=== PATIENT | male | born 1935 | race Caucasian/White ===

== ENCOUNTER 2020-04-06 00:45 | Inpatient (IN) | payer OTHER, MEDICARE, SELFPAY ==
[2020-04-06] VITALS (9 sets, daily range): BP systolic 113–169; BP diastolic 55–71; PULSE 63–85; RESP 17–22; TEMP 36.6–37.2; O2SAT 91–95; BMI 24.7
--- NOTE | 2020-04-06 01:07 | PC.NURSE ---
jacket, clothes, phone librarian
--- NOTE | 2020-04-06 01:22 | P.HP_ITS ---
Providers/Chief Complaint Admitting Physician: Juan C Small MD Chief Complaint: covid+/hyponutremia History of Present Illness Howard Pete is a 84 year old male with PMH of HTN came in with c/o loss of taste, smell,b/l l/e disabiling cramps,fatigue and abdominal discomfort,nausea,loss of appetite all his symptoms started 10 days back and has progressively got worsened.Today he was at [facility] and there he was tested for COVID as a part of work up , unfortunately his RAPID COVID test came back positive.His serum Sodium was also noted to be 116.He was transferred for management of severe hyponatremia.He has denied fever,cough,chest pain,SOB,headache,or any other urinary complain.He is saturating well on R.A. labs from the transfer facility have been Reviewed.He started on N.s @ 125cc hr and was also given medications for nausea and then transferred to our facility. Vitals on arrival is stable.He is afebrile and saturating above 90% on R.A Review of Systems 2 Const: Denies: fever(s) or chills Card: Denies: palpitations, edema or swelling of feet/ankles Resp: Denies: dyspnea, productive cough, wheezing or pain on inspiration GI: Denies: diarrhea or constipation : Denies: flank pain or difficulty urinating Musc: Denies: back pain, extremity pain or extremity swelling Neuro: Denies: headache(s), difficulty walking or confusion Medications/Allergies Home Medications Medication Instructions Recorded Confirmed Last Taken Type amlodipine 10 mg PO DAILY 04/06/20 04/06/20 04/05/20 08:00 History triamterene-hydrochlorothiazid 1 tab PO DAILY 04/06/20 04/06/20 04/05/20 08:00 History Allergies Allergy/AdvReac Type Severity Reaction Status Date / Time No Known Allergies Allergy Verified 04/06/20 01:54 PFSH Acute PFSH: Medical History (Updated 04/06/20 @ 04:27 by Juan C Small MD) Hyponatremia Vitals/I&O/Wt Last Vital Signs Temp 98.7 F 04/06/20 01:13 Pulse 82 04/06/20 01:13 Resp 17 04/06/20 01:13 BP 169/62 04/06/20 01:13 Pulse Ox 93 04/06/20 01:13 Weight last 48 hrs Weight 73.663 kg Physical Exam Const: COMMON NORMALS: patient oriented x3 HENMT: COMMON NORMALS: normocephalic and atraumatic HEAD & SCALP: normocephalic and atraumatic Eye: COMMON NORMALS: no scleral icterus GENERAL EYE: appearance normal, both eyes and all related structures Chest: COMMONS NORMALS: normal inspection of the chest and normal palpation of entire chest wall CHEST: Yes Symmetrical chest wall rise Resp: COMMON NORMALS: normal respiratory effort, No retractions, No use of accessory muscles and clear to auscultation bilaterally EFFORT & INSPECTION: Yes symmetric chest movement AUSCULTATION: clear to auscultation bilaterally Cardio: COMMON NORMALS: regular rate, regular rhythm, S1 normal heart sound present, S2 normal heart sound present, No gallops present (Cardio), No murmurs present (Cardio), No rub (Cardio) and Peripheral pulses 2+ throughout RATE: regular rate RHYTHM: regular rhythm HEART SOUNDS: S1 normal heart sound present and S2 normal heart sound present PERIPHERAL PULSES: Peripheral pulses 2+ throughout GI: COMMON NORMALS: Normal to inspection, nondistended, normoactive bowel sounds present, Soft to palpation, non-tender, No hepatosplenomegaly present and no masses AUSCULTATION: Yes normoactive bowel sounds PALPATION: Yes Soft to palpation and Yes No hepatosplenomegaly present RECTAL EXAM: Yes deferred Extremity: COMMON NORMALS: no clubbing, cyanosis or edema and no pedal edema Neuro: COMMON NORMALS: patient oriented x3 A&P Assessment and plan (1) Hyponatremia: Symptomatic Hyponatremia likely 2/2 to poor oral intake 2/2 to COVID infection TSH Random Cortisol Osmolality serum and urine. Continue N.S @ 125cc/hr Oral salt tablets 1gm q12 h daily Monitor BMP Status: Inactive (2) COVID-19: Currently saturating well ON R.A has no respiratory symptoms Will avoid COVID cocktail Will continue to monitor for now Status: Acute (3) HTN (hypertension): Continue Amlodipine 10 mg oral daily for now Status: Acute Additional A&P Information DVT PPX: On lovenox 40 mg sc daily Code Status :Full code Disposition :Home Attestations Medical Necessity Statement*: Patient needs to be in hospital for the management of severe symptomatic hyponatremia.Anticipated length of stay greater then 2 midnights Coding Level of Care Code Acute Manager French for Chg Fwd Diagnoses Hyponatremia E87.1 COVID-19 U07.1 HTN (hypertension) I10
--- NOTE | 2020-04-06 01:26 | PC.NURSE ---
Pt arrived to floor from [facility] in [facility]. Pt ambulated from gurney to bed with no issues. Pt O2 saturation was 93% on RA, in report they stated he was on 2L NC from hospital. Pt is A&O. Voices leg cramps.
[2020-04-06] MEDS: enoxaparin 40 mg/0.4 mL Syringe SUBCUT (01:43)
[2020-04-06] MEDS: sodium chloride 0.9% 1,000 ML 125 ML IV (01:43)
[2020-04-06] MEDS: cyclobenzaprine 10 mg Tablet 5 MG PO ×2 (01:43→10:22)
[2020-04-06] MEDS: oxyCODONE-APAP 5-325 mg Tablet 1 TAB PO (05:03)
[2020-04-06 05:40] LABS: Basophils % 0.1 %; Hematocrit 31.2 % (42.0-52.0); Hemoglobin 11.5 g/dL (11.7-16.6); Lymphocytes % 11.8 %; Mean Corpuscular HGB Conc 36.9 g/dL (30.0-36.0); Mean Corpuscular Hemoglobin 30.8 pg (28.0-34.0); Mean Corpuscular Volume 83.6 fL (80-94); Mean Platelet Volume 11.2 fL (7.4-10.4); Monocytes # 0.7 10^3/uL (0.2-0.9); Monocytes % 7.9 %; Neutrophils # 6.79 10^3/uL (1.8-7.7); Neutrophils % 79.7 %; Nucleated Red Blood Cells % 0 %; Platelet Count 186 10^3/cmm (130-400); Red Blood Count 3.73 10^6/uL (4.1-5.3); Red Cell Distribution Width 12.1 % (12.1-15.1); White Blood Count 8.5 10^3/uL (4.0-10.0)
[2020-04-06 06:33] LABS: D Dimer 0.53 ug/mIFEU (0-0.59)
[2020-04-06 06:42] LABS: Ferritin 640 ng/mL (30-400)
[2020-04-06 06:47] LABS: NT Pro B Type Natriuretic Pept 836 pg/mL (0-450)
[2020-04-06 06:49] LABS: Cortisol Random 20.86 ug/mL (2.47-19.5)
[2020-04-06 07:50] LABS: Erythrocyte Sedimentation Rate 22 mm/hr (0-10)
[2020-04-06] MEDS: amlodipine 10 mg Tablet PO (08:42)
[2020-04-06] MEDS: hydroCHLOROthiazide 25 mg Tablet 50 MG PO (08:42)
[2020-04-06] MEDS: pantoprazole 40 mg SDV IVP (08:42)
[2020-04-06] MEDS: gabapentin 100 mg Capsule PO ×3 (08:42→20:47)
--- NOTE | 2020-04-06 09:41 | P.PN_ITS ---
Subjective Subjective: Interval history: He feels slightly better. Cramps have let up somewhat, some residual discomfort in his legs afterward. He has been feeling little bit queasy. Appetite is not the best. No abdominal pain. No vomiting. No diarrhea. No headache. Some muscle aches. Vitals/I&O/Wt Last Vital Signs Temp 98.7 F 04/06/20 08:00 Pulse 85 04/06/20 09:39 Resp 18 04/06/20 08:00 BP 137/57 04/06/20 08:00 Pulse Ox 93 04/06/20 09:39 04/05/20 04/06/20 04/06/20 22:59 06:59 14:59 Intake Total 240 / 240 Output Total 0 / 0 Balance 0 / 0 240 / 240 Weight last 48 hrs Weight 73.709 kg Weight 73.663 kg Physical Exam Const: COMMON NORMALS: no acute distress and patient oriented x3 OTHER: Pleasant elderly gentleman, awake, alert, not in distress. HENMT: COMMON NORMALS: oropharynx normal Eye: COMMON NORMALS: Equal, round and reactive pupils present PUPIL: Yes Equal, round and reactive pupils present OTHER: Some injection of conjunctiva which he says is chronic. Some mild chemosis. Neck/C-Spine: COMMON NORMALS: no JVD Resp: COMMON NORMALS: normal respiratory effort AUSCULTATION: diminished lung sounds Cardio: COMMON NORMALS: no JVD, regular rhythm, S1 normal heart sound present, S2 normal heart sound present and No murmurs present (Cardio) RHYTHM: regular rhythm HEART SOUNDS: S1 normal heart sound present and S2 normal heart sound present GI: COMMON NORMALS: Normal to inspection, nondistended, normoactive bowel sounds present, Soft to palpation and non-tender PALPATION: Yes Soft to palpation Extremity: COMMON NORMALS: no joint enlargement and no pedal edema Neuro: COMMON NORMALS: patient oriented x3 and moves all extremities Skin: COMMON NORMALS: no rashes or lesions noted GENERAL SKIN EXAM: no rashes or lesions noted Data : 04/06/20 05:00 04/06/20 09:16 A&P Assessment and plan (1) Hyponatremia: Hold IV infusion, sodium tablets, check sodium level. Resume therapy depending on the level. Symptomatic Hyponatremia likely 2/2 to poor oral intake 2/2 to COVID infection. Appetite is poor. He agrees to take some Ensure with meals. We will add. TSH, will request Random Cortisol appropriate. Osmolality serum and urine, urine sodium pending. Follow. Status: Inactive (2) COVID-19: Moderate symptomatic infection, without hypoxia, although she was started on oxygen, not sure whether symptomatic. Will check with RT - per RT Sat came down to 85% which would make his COVID-19 pneumonia severe. Does not appear in fluid overload. Will start on Remdesivir, decadron. Monitor O2. So far doing well on 3L. Lovenox PPx Status: Acute (3) HTN (hypertension): Continue Amlodipine 10 mg oral daily for now Status: Acute Additional A&P Information Leg cramps: He reports these have improved. Likely due to electrolyte imbalances, dehydration. Pending magnesium level, calcium, follow potassium level. Check CK. DVT PPX: On lovenox 40 mg sc daily Code Status :Full code Disposition :Home Attestations Medical Necessity Statement*: Continue admission for assessment management of symptomatic hyponatremia, severe COVID-19 pneumonia Coding Level of Care Code Acute Metallurgical Laboratory Assistant for [facility] Fwd Exam Comprehensive Diagnoses Hyponatremia E87.1 COVID-19 U07.1 HTN (hypertension) I10
[2020-04-06] MEDS: dexamethasone 4 mg Tablet 6 MG PO (10:22)
[2020-04-06 11:38] LABS: Alanine Aminotransferase 19 U/L (0-41); Alkaline Phosphatase 79 IU/L (40-130); Anion Gap 12.3 (5-19); Aspartate Amino Transferase 45 U/L (0-40); Blood Urea Nitrogen 12 mg/dL (8-23); Carbon Dioxide 22 mmol/L (22-29); Chloride 81 mmol/L (98-107); Globulin 2.5 g/dL (1.3-4.6); Glucose 112 mg/dL (65-115); Magnesium 1.5 mg/dL (1.7-2.3); Osmolality Calculated 235 mOsm/kg (285-295); Potassium 3.3 mmol/L (3.5-5.1); Thyroid Stimulating Hormone 1.28 uIU/mL (0.27-4.20); Total Bilirubin 0.5 mg/dL (0.15-1.2); Total Protein 5.5 g/dL (6.6-8.7)
[2020-04-06 11:44] LABS: Creatine Phosphokinase 1241 U/L (39-308); Sodium 112 mmol/L (136-145)
[2020-04-06] MEDS: magnesium sulfate premix 2 GM/50 ML PIGGYBACK IV (13:45)
[2020-04-06] MEDS: potassium chloride ER 20 mEq Tablet PO (13:45)
[2020-04-06 16:32] LABS: Creatine Phosphokinase 1292 U/L (39-308)
[2020-04-06 17:00] LABS: Sodium 114 mmol/L (136-145)
--- NOTE | 2020-04-06 19:44 | XR_ITS ---
WS: [id number] XR chest 1V portable [id number] REASON FOR EXAM: SIADH, pulmonary lesion? FINDINGS: No examination for comparison. The heart and mediastinum are within normal limits for age. No active pulmonary parenchymal or pleural abnormality. There is elevation of the right hemidiaphragm with colon interposition. XR/XR chest 1V portable [id number] IMPRESSION: No acute chest abnormality. No lung mass identified.
--- NOTE | 2020-04-06 19:54 | P.CONIM_ITS ---
Providers/Reason For Consult Consulting Physican/Specialty*: Nephrology Reason for Consult*: hyponatremia Attending Physician: Zoran Crouch History of Present Illness History of Present Illness Thank you for consultation. Today I had the pleasure of reviewing this very pleasant 84-year-old gentleman for evaluation of hyponatremia. He presented to our facility with leg cramps for 4-5 days, loss of smell and taste for 1-2 weeks. He was subsequently found to be Covid positive. He specifically denies any fevers or chills, cough, upper respiratory tract infection. For the last few days/week or more he has had poor oral intake of food, however has been attempting to hydrate, drinking roughly 30 ounces of fluid a day. At home he takes Maxide. On arrival he was found to have a serum sodium of 112 at 11 AM, repeat levels of 4 PM and had improved to 114. This was after isotonic IV hydration has been administered. He remains on hydrochlorothiazide. No known history of hyponatremia. He does not drink fluids excessively. Apart from the hydrochlorothiazide that he has been taking, there are no other medication exposures including opioids, antidepressants etc. No recent exposure to steroids. No history of heart disease, lung disease, thyroid disease, liver disease. No extremity edema, shortness of breath or other high-volume associated symptoms. No diarrhea, vomiting or other electrolyte rich fluid loss. He is not a chronic smoker or drinker. TSH is 1.28, random cortisol 20. Potassium was low 3.3 and has been replaced with 60 Shima use. Urine osmolality is pending. Meds/Allergies Home Medications and Allergies Home Medications Medication Instructions Recorded Confirmed Last Taken Type amlodipine 10 mg PO DAILY 04/06/20 04/06/20 04/05/20 08:00 History triamterene-hydrochlorothiazid 1 tab PO DAILY 04/06/20 04/06/20 04/05/20 08:00 History Allergies Allergy/AdvReac Type Severity Reaction Status Date / Time No Known Allergies Allergy Verified 04/06/20 01:54 Current Medications Current Medications Generic Name Dose Route Start Last Admin Trade Name Freq PRN Reason Stop Dose Admin Amlodipine Besylate 10 mg 04/06/20 09:00 04/06/20 08:42 Amlodipine 10 Mg Tablet PO 10 mg DAILY ABENA Administration Cyclobenzaprine HCl 5 mg 04/06/20 01:17 04/06/20 10:22 Cyclobenzaprine 10 Mg Tablet PO 5 mg TID PRN Administration MUSCLE SPASMS Dexamethasone 6 mg 04/06/20 09:55 04/06/20 10:22 Dexamethasone 4 Mg Tablet PO 6 mg DAILY ABENA Administration Enoxaparin Sodium 40 mg 04/06/20 01:15 04/06/20 01:43 Enoxaparin 40 Mg/0.4 Ml Syringe SUBCUT 40 mg Q24H ABENA Administration Gabapentin 100 mg 04/06/20 09:00 04/06/20 14:35 Gabapentin 100 Mg Capsule PO 100 mg TID ABENA Administration Sodium Chloride 1,000 mls @ 125 mls/hr 04/06/20 01:15 04/06/20 01:43 Sodium Chloride 0.9% IV 125 mls/hr .Q8H ABENA Administration Oxycodone/Acetaminophen 1 tab 04/06/20 01:13 04/06/20 05:03 Oxycodone-Apap 5-325 Mg Tablet PO 1 tab Q4H PRN Administration SEVERE PAIN Pantoprazole Sodium 40 mg 04/06/20 09:00 04/06/20 08:42 Pantoprazole 40 Mg Sdv IVP 40 mg DAILY ABENA Administration PFSH Acute PFSH: Medical History (Updated 04/06/20 @ 04:27 by Juan C Small MD) Hyponatremia Vitals/I&O/Wt Last Vital Signs Temp 98.7 F 04/06/20 19:52 Pulse 71 04/06/20 19:52 Resp 18 04/06/20 19:52 BP 124/61 04/06/20 19:52 Pulse Ox 92 04/06/20 19:52 04/06/20 04/06/20 04/06/20 06:59 14:59 22:59 Intake Total 490 / 490 300 / 790 Output Total 0 / 0 240 / 240 500 / 740 Balance 0 / 0 250 / 250 -200 / 50 Weight last 48 hrs Weight 73.709 kg Weight 73.663 kg Physical Exam Narrative: EXAM NARRATIVE: Constitutional: Awake, conversant HEENT: Wet mucosa, no jvp, non icteric Lungs: Bilaterally clear without discernible wheeze or rales in all lung zones CVS: S1 S2, no murmurs Abdo: Soft, BS ok Ext 4: Minimal edema, peripheral perfusion with no cyanosis Neurological: Grossly non-focal A&P Additional A&P Information 1. Euvolemic hyponatremia. Almost certainly multifactorial, with predisposition secondary to his outpatient exposure to thiazide. Now likely precipitated by low solute relative to high water intake. His sodium levels were improving on isotonic saline, I will continue isotonic lactated Ringer's at 75 cc/h. Work-up largely complete, will get a stat urinalysis, repeat sodium level now morning a chest x-ray to exclude underlying lung pathology. We will get sodium levels every 6 hours. Goal sodium will be 120 tomorrow morning at 11 AM. This is been relayed to the nursing staff, to contact me if the sodium levels increase above this level. Obviously we have to stop the hydrochlorothiazide. No fluid restriction for the time being, however, solute in the form of fluid is to be encouraged. 2. Covid On remdesivir and dexamethasone. Defer management to primary team. 3. Hypertension. Hold hydrochlorothiazide. We will continue to monitor hemodynamics. Thank you for consultation, as always is a pleasure for myself and my team to follow these patients with you. Interview and examination was performed with the aid of the bedside nurse. Consult Attestations Medical Necessity Statement: eval for hyponatremia Coding Level of Care Code Acute Traffic Control Supervisor for Monique Hurley
[2020-04-06] MEDS: lactated ringers 1,000 ML 75 ML IV (20:47)
[2020-04-07] VITALS (11 sets, daily range): BP systolic 115–146; BP diastolic 59–69; PULSE 64–78; RESP 16–19; TEMP 37.1–37.2; O2SAT 88–95
[2020-04-07] MEDS: enoxaparin 40 mg/0.4 mL Syringe SUBCUT
[2020-04-07] MEDS: cyclobenzaprine 10 mg Tablet 5 MG PO
[2020-04-07 01:26] LABS: Sodium 116 mmol/L (136-145)
[2020-04-07 05:50] LABS: Basophils % 0.2 %; Hematocrit 34.7 % (42.0-52.0); Hemoglobin 12.7 g/dL (11.7-16.6); Lymphocytes # 0.7 10^3/uL (0.8-4.8); Lymphocytes % 13.4 %; Mean Corpuscular HGB Conc 36.6 g/dL (30.0-36.0); Mean Corpuscular Hemoglobin 31.1 pg (28.0-34.0); Mean Platelet Volume 11.2 fL (7.4-10.4); Monocytes # 0.4 10^3/uL (0.2-0.9); Monocytes % 7.2 %; Neutrophils # 4.35 10^3/uL (1.8-7.7); Neutrophils % 78.7 %; Nucleated Red Blood Cells % 0 %; Platelet Count 205 10^3/cmm (130-400); Red Blood Count 4.08 10^6/uL (4.1-5.3); Red Cell Distribution Width 12.1 % (12.1-15.1); White Blood Count 5.5 10^3/uL (4.0-10.0)
[2020-04-07 06:15] LABS: C Reactive Protein 54.5 mg/L (0.0-4.9)
[2020-04-07 06:25] LABS: Alanine Aminotransferase 22 U/L (0-41); Alkaline Phosphatase 82 IU/L (40-130); Anion Gap 12.6 (5-19); Aspartate Amino Transferase 50 U/L (0-40); Blood Urea Nitrogen 11 mg/dL (8-23); Calcium 8.5 mg/dL (8.5-10.5); Carbon Dioxide 25 mmol/L (22-29); Chloride 83 mmol/L (98-107); Creatinine Clr Calc Pharmacy 68.4763; Globulin 2.7 g/dL (1.3-4.6); Glucose 162 mg/dL (65-115); Osmolality Calculated 247 mOsm/kg (285-295); Potassium 3.6 mmol/L (3.5-5.1); Thyroid Stimulating Hormone 0.69 uIU/mL (0.27-4.20); Total Bilirubin 0.4 mg/dL (0.15-1.2); Total Protein 5.7 g/dL (6.6-8.7)
[2020-04-07 06:45] LABS: Add Urine Microscopic? NO
[2020-04-07 06:55] LABS: D Dimer 0.61 ug/mIFEU (0-0.59)
[2020-04-07 07:18] LABS: Sodium 117 mmol/L (136-145)
[2020-04-07 07:31] LABS: Bilirubin Urine Neg (Negative); Blood Urine Neg (Negative); Glucose Urine UA Norm (Normal); Ketones Urine Negative (Negative); Leukocyte Esterase Urine Negative (Negative); Nitrate Urine Negative (Negative); Protein Urine Neg (Negative); Specific Gravity, Urine 1.015 (1.005-1.030); Urine Appearance Clear (CLEAR); Urine Color Yellow (Yellow); Urobilinogen Urine Norm (Negative); pH Urine 6.5 (5-7)
[2020-04-07] MEDS: amlodipine 10 mg Tablet PO (09:21)
[2020-04-07] MEDS: dexamethasone 4 mg Tablet 6 MG PO (09:21)
[2020-04-07] MEDS: gabapentin 100 mg Capsule PO ×3 (09:21→20:31)
[2020-04-07] MEDS: lactated ringers 1,000 ML 75 ML IV (09:22)
[2020-04-07] MEDS: pantoprazole 40 mg SDV IVP (09:57)
[2020-04-07 10:19] LABS: Creatine Phosphokinase 922 U/L (39-308)
--- NOTE | 2020-04-07 10:52 | PM.PN ---
Subjective Subjective: Interval history: When asked how he is doing says not well . Then clarifies he is feeling better compared to admission. Says his breathing is comfortable. Denies chest pain or pressure. Denies headache, no nausea vomiting or diarrhea. Vitals/I&O/Wt Last Vital Signs Temp 98.7 F 04/07/20 07:59 Pulse 64 04/07/20 07:59 Resp 19 H 04/07/20 07:59 BP 115/61 04/07/20 07:59 Pulse Ox 92 04/07/20 07:59 04/06/20 04/07/20 04/07/20 22:59 06:59 14:59 Intake Total 300 / 790 1563.75 / 1563.75 Output Total 500 / 740 900 / 1640 250 / 250 Balance -200 / 50 -900 / -850 1313.75 / 1313.75 Weight last 48 hrs Weight 73.482 kg Weight 73.709 kg Weight 73.663 kg Physical Exam Const: COMMON NORMALS: no acute distress, patient oriented x3 and alert GENERAL APPEARANCE: cooperative and comfortable ORIENTATION/CONSCIOUSNESS: Yes awake OTHER: Pleasant elderly gentleman. HENMT: COMMON NORMALS: oropharynx normal Eye: COMMON NORMALS: Equal, round and reactive pupils present PUPIL: Yes Equal, round and reactive pupils present OTHER: Some injection of conjunctiva today is better. Some mild chemosis. Neck/C-Spine: COMMON NORMALS: no JVD Resp: COMMON NORMALS: normal respiratory effort AUSCULTATION: wheezes and diminished lung sounds Cardio: COMMON NORMALS: no JVD, regular rhythm, S1 normal heart sound present, S2 normal heart sound present and No murmurs present (Cardio) RHYTHM: regular rhythm HEART SOUNDS: S1 normal heart sound present and S2 normal heart sound present GI: COMMON NORMALS: Normal to inspection, nondistended, normoactive bowel sounds present, Soft to palpation and non-tender PALPATION: Yes Soft to palpation Extremity: COMMON NORMALS: no joint enlargement and no pedal edema Neuro: COMMON NORMALS: patient oriented x3 and moves all extremities SENSORIUM/ORIENTATION: Yes alert Skin: COMMON NORMALS: no rashes or lesions noted GENERAL SKIN EXAM: no rashes or lesions noted Data : 04/07/20 04:05 04/07/20 04:05 A&P Assessment and plan (1) Hyponatremia: Yesterday sodium initially worsened after IV infusion from 116 before transfer to 112. Infusion was held. Subsequently gentle hydration restarted with LR. Appears to be now gradually improving sodium up to 117. His respiratory status is also improving. Continue to monitor sodium. Treat pneumonia. Appreciate nephrology assessment. Symptomatic Hyponatremia likely 2/2 to poor oral intake 2/2 to COVID infection. Appetite is poor. He agrees to take some Ensure with meals. DC HCTZ on discharge. TSH normal Random Cortisol appropriate. Osmolality serum and urine, urine sodium pending. Follow. Status: Inactive (2) COVID-19: Improving. Weaning down on oxygen. Not on oxygen prior to admission. Continue remdesivir, Decadron at this time. He is wheezing. Albuterol inhaler as needed. Lovenox PPx Status: Acute (3) HTN (hypertension): BP at goal. Continue Amlodipine 10 mg oral daily for now Status: Acute Additional A&P Information Leg cramps: Resolved. He reports these have improved. Likely due to electrolyte imbalances, dehydration. Mg, K, Ca ok. Rhabdomyolysis improving w gentle hydration. DVT PPX: On lovenox 40 mg sc daily Code Status :Full code Disposition :Home Attestations Medical Necessity Statement*: Continue admission for assessment management of acute hyponatremia, COVID-19 pneumonia with improving hypoxia. Coding Level of Care Code Acute Word Processor Technician for Monique Hurley Diagnoses Hyponatremia E87.1 COVID-19 U07.1 HTN (hypertension) I10
--- NOTE | 2020-04-07 12:11 | PM.PN ---
Subjective Subjective: Interval history: A little better, generally ok. Slightly phlegmy but no SOB, WILD No edema and no other volume Sx since receiving ivf overnight Sodium levels coming up nice and slowly Vitals/I&O/Wt Last Vital Signs Temp 98.7 F 04/07/20 11:37 Pulse 69 04/07/20 11:37 Resp 16 04/07/20 11:37 BP 120/62 04/07/20 11:37 Pulse Ox 92 04/07/20 11:37 04/06/20 04/07/20 04/07/20 22:59 06:59 14:59 Intake Total 300 / 790 1563.75 / 1563.75 Output Total 500 / 740 900 / 1640 250 / 250 Balance -200 / 50 -900 / -850 1313.75 / 1313.75 Weight last 48 hrs Weight 73.482 kg Weight 73.709 kg Weight 73.663 kg Physical Exam Narrative: EXAM NARRATIVE: Constitutional: Awake, conversant HEENT: Wet mucosa, no jvp, non icteric Lungs: Bilaterally clear without discernible wheeze or rales in all lung zones CVS: S1 S2, no murmurs Abdo: Soft, BS ok Ext 4: Minimal edema, peripheral perfusion with no cyanosis Neurological: Grossly non-focal Data : 04/07/20 04:05 04/07/20 04:05 A&P Additional A&P Information 1. Euvolemic hyponatremia. Almost certainly multifactorial, with predisposition secondary to his outpatient exposure to thiazide. Now likely precipitated by low solute relative to high water intake. Sp Gr in urine 1.015; indicative that ADH is certainly driving up urine conc to hypertonic levels Continue sodium levels every 6 hours. Goal sodium will be high 120 tomorrow morning at 11 AM. HCTZ is off No fluid restriction for the time being, however, solute in the form of fluid is to be encouraged. 2. Covid On remdesivir and dexamethasone. Defer management to primary team. 3. Hypertension. Hold hydrochlorothiazide. We will continue to monitor hemodynamics. Thank you for consultation, as always is a pleasure for myself and my team to follow these patients with you. Interview and examination was performed with the aid of the bedside nurse. Attestations Medical Necessity Statement*: eval for hyponatremia Coding Level of Care Code Acute Functional Tester Typewriters for Chg Xavi
[2020-04-07 13:40] LABS: Sodium 117 mmol/L (136-145)
[2020-04-07 14:18] LABS: Osmolality Urine 454 mOsm/kg (50-1200)
[2020-04-07 14:18] LABS: Osmolality Serum 235 mOsm/kg (278-305)
--- NOTE | 2020-04-07 18:33 | PC.NURSE ---
SHIFT SUMMARY PT HAS NOT HAD MUCH OF A CHANGE THIS SHIFT, OTHER THAN HE IS NOW REQUIRING 2 L NC HE WAS SITTING AT 88% AT ROOM AIR, BRENDA VITAL PLACED HIM ON OXYGEN AT APPROXIMATELY 1600. PT HAS BEEN USING URINAL AND BEEN EATING APPROXIMATELY 50% OF HIS MEALS.
[2020-04-07 18:54] LABS: Sodium 118 mmol/L (136-145)
[2020-04-08] VITALS (8 sets, daily range): BP systolic 117–146; BP diastolic 52–70; PULSE 65–86; RESP 16–20; TEMP 36.4–37; O2SAT 92–96
[2020-04-08 01:08] LABS: Sodium 117 mmol/L (136-145)
[2020-04-08] MEDS: enoxaparin 40 mg/0.4 mL Syringe SUBCUT (01:50)
[2020-04-08] MEDS: sodium chloride 1 gm Tablet PO (01:51)
[2020-04-08] MEDS: lactated ringers 1,000 ML 75 ML IV (01:53)
[2020-04-08] MEDS: lanolin oint 7 gm 1 APPLIC TOPICAL (05:43)
[2020-04-08 05:49] LABS: Basophils % 0.1 %; Eosinophils % 0.2 %; Hematocrit 37.9 % (42.0-52.0); Hemoglobin 13.5 g/dL (11.7-16.6); Lymphocytes # 1.3 10^3/uL (0.8-4.8); Lymphocytes % 11.6 %; Mean Corpuscular HGB Conc 35.6 g/dL (30.0-36.0); Mean Corpuscular Hemoglobin 30.8 pg (28.0-34.0); Mean Corpuscular Volume 86.3 fL (80-94); Mean Platelet Volume 10.8 fL (7.4-10.4); Monocytes # 0.9 10^3/uL (0.2-0.9); Monocytes % 7.7 %; Neutrophils # 8.99 10^3/uL (1.8-7.7); Neutrophils % 79.8 %; Nucleated Red Blood Cells % 0 %; Platelet Count 265 10^3/cmm (130-400); Red Blood Count 4.39 10^6/uL (4.1-5.3); Red Cell Distribution Width 12.1 % (12.1-15.1); White Blood Count 11.3 10^3/uL (4.0-10.0)
[2020-04-08 06:05] LABS: Alanine Aminotransferase 27 U/L (0-41); Albumin Level 3.3 g/dL (3.5-5.2); Alkaline Phosphatase 91 IU/L (40-130); Aspartate Amino Transferase 46 U/L (0-40); Blood Urea Nitrogen 13 mg/dL (8-23); C Reactive Protein 28.9 mg/L (0.0-4.9); Calcium 8.6 mg/dL (8.5-10.5); Carbon Dioxide 23 mmol/L (22-29); Chloride 83 mmol/L (98-107); Globulin 2.9 g/dL (1.3-4.6); Glucose 182 mg/dL (65-115); Osmolality Calculated 251 mOsm/kg (285-295); Total Bilirubin 0.4 mg/dL (0.15-1.2); Total Protein 6.2 g/dL (6.6-8.7)
[2020-04-08 06:07] LABS: Creatine Phosphokinase 554 U/L (39-308); D Dimer 0.68 ug/mIFEU (0-0.59)
[2020-04-08 06:09] LABS: Anion Gap 15.8 (5-19); Potassium 3.8 mmol/L (3.5-5.1); Sodium 118 mmol/L (136-145)
[2020-04-08] MEDS: gabapentin 100 mg Capsule PO ×3 (09:00→20:46)
[2020-04-08] MEDS: dexamethasone 4 mg Tablet 6 MG PO (09:00)
[2020-04-08] MEDS: amlodipine 10 mg Tablet PO (09:00)
[2020-04-08] MEDS: pantoprazole 40 mg SDV IVP (10:26)
--- NOTE | 2020-04-08 12:38 | PM.PN ---
Subjective Subjective: Interval history: He says he is feeling all right. He has not had a bowel movement in 3-4 days, but otherwise denies any complaints. Breathing has been comfortable with oxygen on. Denies chest pain or pressure. No headache. No nausea vomiting. Vitals/I&O/Wt Last Vital Signs Temp 98.6 F 04/08/20 08:00 Pulse 77 04/08/20 08:28 Resp 18 04/08/20 08:28 BP 146/70 04/08/20 08:00 Pulse Ox 94 04/08/20 08:28 04/07/20 04/08/20 04/08/20 22:59 06:59 14:59 Intake Total 1480 / 3163.75 580 / 3743.75 240 / 240 Output Total 425 / 675 950 / 1625 Balance 1055 / 2488.75 -370 / 2118.75 240 / 240 Weight last 48 hrs Weight 81.102 kg Weight 73.482 kg Physical Exam Const: COMMON NORMALS: no acute distress, patient oriented x3 and alert GENERAL APPEARANCE: cooperative and comfortable ORIENTATION/CONSCIOUSNESS: Yes awake OTHER: Pleasant elderly gentleman. Awake, alert. Standing in his room getting ready to walk to the washroom. HENMT: COMMON NORMALS: oropharynx normal Eye: COMMON NORMALS: Equal, round and reactive pupils present PUPIL: Yes Equal, round and reactive pupils present OTHER: Conjunctiva injection improving. Some mild chemosis. Neck/C-Spine: COMMON NORMALS: no JVD Resp: COMMON NORMALS: normal respiratory effort (NC in place.) EFFORT & INSPECTION: Yes able to speak in complete sentences AUSCULTATION: no wheezes and diminished lung sounds (Improving) Cardio: COMMON NORMALS: no JVD, regular rhythm, S1 normal heart sound present, S2 normal heart sound present and No murmurs present (Cardio) RHYTHM: regular rhythm HEART SOUNDS: S1 normal heart sound present and S2 normal heart sound present GI: COMMON NORMALS: Normal to inspection, nondistended, normoactive bowel sounds present, Soft to palpation and non-tender PALPATION: Yes Soft to palpation Extremity: COMMON NORMALS: no joint enlargement and no pedal edema Neuro: COMMON NORMALS: patient oriented x3 and moves all extremities SENSORIUM/ORIENTATION: Yes alert Skin: COMMON NORMALS: no rashes or lesions noted GENERAL SKIN EXAM: no rashes or lesions noted Data : 04/08/20 05:20 04/08/20 05:20 A&P Assessment and plan (1) Hyponatremia: Rather slow improvement, sodium up to 117 overnight, was given 1 g NaCl tablets. This morning 118. Continue monitoring, will relax interval somewhat to 8 hours since he has not had drastic changes. Appreciate nephrology recommendations, adjustment of IV fluids to LR. Continue treatment of underlying pulmonary problem. Symptomatic Hyponatremia likely 2/2 to poor oral intake 2/2 to COVID infection. Appetite is poor. He agrees to take some Ensure with meals. DC HCTZ on discharge. TSH normal Random Cortisol appropriate. Status: Inactive (2) COVID-19: Showing gradual improvement. Today he feels like he is bringing up some phlegm. Discussed with him use of flutter valve. Continue attempts to wean down oxygen. Not on oxygen prior to admission. Continue remdesivir, Decadron at this time. Albuterol inhaler as needed for wheezing. Lovenox PPx Status: Acute (3) HTN (hypertension): BP at goal. Continue Amlodipine 10 mg oral daily for now Status: Acute Additional A&P Information Constipation: add bowel regimen Leg cramps: Resolved. He reports these have improved. Likely due to electrolyte imbalances, dehydration. Mg, K, Ca ok. Rhabdomyolysis improving w gentle hydration. DVT PPX: On lovenox 40 mg sc daily Code Status :Full code Disposition :Home Attestations Medical Necessity Statement*: Continue admission for assessment management of severe COVID-19 pneumonia with hypoxia, acute euvolemic hyponatremia. Coding Level of Care Code Acute Certified [employer]ell Engineer for Monique Hurley Diagnoses Hyponatremia E87.1 COVID-19 U07.1 HTN (hypertension) I10
--- NOTE | 2020-04-08 13:01 | PM.PN ---
Subjective Subjective: Interval history: Feels ok, a little weak but generally ok, poor appetite and no sense of taste or smell. Minimal extremity edema and no SOB no AMS, eating and drinking well Vitals/I&O/Wt Last Vital Signs Temp 98.6 F 04/08/20 08:00 Pulse 77 04/08/20 08:28 Resp 18 04/08/20 08:28 BP 146/70 04/08/20 08:00 Pulse Ox 94 04/08/20 08:28 04/07/20 04/08/20 04/08/20 22:59 06:59 14:59 Intake Total 1480 / 3163.75 580 / 3743.75 240 / 240 Output Total 425 / 675 950 / 1625 Balance 1055 / 2488.75 -370 / 2118.75 240 / 240 Weight last 48 hrs Weight 81.102 kg Weight 73.482 kg Physical Exam Narrative: EXAM NARRATIVE: Constitutional: Awake, conversant HEENT: Wet mucosa, no jvp, non icteric Lungs: Bilaterally clear without discernible wheeze or rales in all lung zones CVS: S1 S2, no murmurs Abdo: Soft, BS ok Ext 4: Minimal edema, peripheral perfusion with no cyanosis Neurological: Grossly non-focal Data : 04/08/20 05:20 04/08/20 05:20 A&P Additional A&P Information 1. Euvolemic hyponatremia. Sodium stuck in high 1teens Almost certainly multifactorial, with predisposition secondary to his outpatient exposure to thiazide. Now likely precipitated by low solute relative to high water intake. Sp Gr in urine 1.015; indicative that ADH is certainly driving up urine conc to hypertonic levels Continue sodium levels every 6 hours. Goal sodium will be high 120 tomorrow morning at 11 AM. HCTZ is off No fluid restriction for the time being, however, solute in the form of fluid is to be encouraged. Will change ivf to LR with 75 mEq of sodium chloride added at 75ml/hr 2. Covid On remdesivir and dexamethasone. Defer management to primary team. 3. Hypertension. Hold hydrochlorothiazide. We will continue to monitor hemodynamics. Thank you for consultation, as always is a pleasure for myself and my team to follow these patients with you. Interview and examination was performed with the aid of the bedside nurse. Attestations Medical Necessity Statement*: eval for hyponatremia Coding Level of Care Code Acute Senior Interactive Producer for Monique Hurley
[2020-04-08] MEDS: bisacodyl 10 mg Supp PR (14:28)
[2020-04-08 14:42] LABS: Sodium 119 mmol/L (136-145)
[2020-04-08] MEDS: polyethylene glycol 3350 Pkt 17 gm PO (16:47)
--- NOTE | 2020-04-08 18:18 | PC.NURSE ---
SHIFT SUMMARY PT HAD A SMALL BM AFTER SUPPOSITORY, BUT STILL IS FEELING BLOATED AND IS HAVING SOME SWELLING IN BILATERAL UPPER AND LOWER EXTREMITIES. NO OTHER CHANGES THIS SHIFT.
[2020-04-08 22:20] LABS: Sodium 119 mmol/L (136-145)
[2020-04-09] VITALS (10 sets, daily range): BP systolic 127–169; BP diastolic 58–75; PULSE 73–88; RESP 18–20; TEMP 36.7–37; O2SAT 93–98
[2020-04-09] MEDS: enoxaparin 40 mg/0.4 mL Syringe SUBCUT (00:30)
[2020-04-09 06:20] LABS: Basophils % 0.1 %; Eosinophils % 0.2 %; Hematocrit 35.5 % (42.0-52.0); Hemoglobin 12.8 g/dL (11.7-16.6); Lymphocytes # 1.2 10^3/uL (0.8-4.8); Lymphocytes % 9.9 %; Mean Corpuscular HGB Conc 36.1 g/dL (30.0-36.0); Mean Corpuscular Hemoglobin 30.9 pg (28.0-34.0); Mean Corpuscular Volume 85.7 fL (80-94); Mean Platelet Volume 10.6 fL (7.4-10.4); Monocytes # 1.2 10^3/uL (0.2-0.9); Neutrophils # 9.38 10^3/uL (1.8-7.7); Neutrophils % 78.8 %; Nucleated Red Blood Cells % 0 %; Platelet Count 301 10^3/cmm (130-400); Red Blood Count 4.14 10^6/uL (4.1-5.3); Red Cell Distribution Width 12.2 % (12.1-15.1); White Blood Count 11.9 10^3/uL (4.0-10.0)
[2020-04-09 06:36] LABS: Alanine Aminotransferase 42 U/L (0-41); Albumin Level 3.1 g/dL (3.5-5.2); Alkaline Phosphatase 85 IU/L (40-130); Aspartate Amino Transferase 59 U/L (0-40); Blood Urea Nitrogen 14 mg/dL (8-23); Calcium 8.3 mg/dL (8.5-10.5); Carbon Dioxide 25 mmol/L (22-29); Chloride 86 mmol/L (98-107); Globulin 2.5 g/dL (1.3-4.6); Glucose 141 mg/dL (65-115); Osmolality Calculated 255 mOsm/kg (285-295); Sodium 121 mmol/L (136-145); Total Bilirubin 0.4 mg/dL (0.15-1.2); Total Protein 5.6 g/dL (6.6-8.7)
[2020-04-09 07:09] LABS: Anion Gap 14.2 (5-19); Potassium 4.2 mmol/L (3.5-5.1)
[2020-04-09] MEDS: pantoprazole DR 40 mg Tablet PO (09:02)
[2020-04-09] MEDS: amlodipine 10 mg Tablet PO (09:02)
[2020-04-09] MEDS: gabapentin 100 mg Capsule PO ×3 (09:02→20:52)
[2020-04-09] MEDS: polyethylene glycol 3350 Pkt 17 gm PO ×2 (09:02→17:08)
[2020-04-09] MEDS: dexamethasone 4 mg Tablet 6 MG PO (09:02)
--- NOTE | 2020-04-09 11:36 | PM.PN ---
Subjective Subjective: Interval history: Feels ok, a little weak but generally ok, poor appetite and no sense of taste or smell. Minimal extremity edema and no SOB no AMS, eating and drinking well Vitals/I&O/Wt Last Vital Signs Temp 98.6 F 04/09/20 11:12 Pulse 88 04/09/20 11:12 Resp 18 04/09/20 11:12 BP 127/68 04/09/20 11:12 Pulse Ox 93 04/09/20 11:12 04/08/20 04/09/20 04/09/20 22:59 06:59 14:59 Intake Total 480 / 960 1018.75 / 1978.75 1580 / 1580 Output Total 400 / 675 600 / 1275 Balance 80 / 285 418.75 / 703.75 1580 / 1580 Weight last 48 hrs Weight 81.42 kg Weight 81.102 kg Physical Exam Narrative: EXAM NARRATIVE: Constitutional: Awake, conversant HEENT: Wet mucosa, no jvp, non icteric Lungs: Bilaterally clear without discernible wheeze or rales in all lung zones CVS: S1 S2, no murmurs Abdo: Soft, BS ok Ext 4: Minimal edema, peripheral perfusion with no cyanosis Neurological: Grossly non-focal Data : 04/09/20 05:55 04/09/20 05:55 A&P Additional A&P Information 1. Euvolemic hyponatremia. Sodium slowly climbing Almost certainly multifactorial, with predisposition secondary to his outpatient exposure to thiazide. Now likely precipitated by low solute relative to high water intake. Sp Gr in urine 1.015; indicative that ADH is certainly driving up urine conc to hypertonic levels Continue sodium levels every 8 hours. Goal sodium will be mnid 130s tomorrow morning at 11 AM. HCTZ is off No fluid restriction for the time being, however, solute in the form of fluid is to be encouraged. Cont ivf to LR with 75 mEq of sodium chloride added at 75ml/hr 2. Covid On remdesivir and dexamethasone. Defer management to primary team. 3. Hypertension. Hold hydrochlorothiazide. We will continue to monitor hemodynamics. Thank you for consultation, as always is a pleasure for myself and my team to follow these patients with you. Interview and examination was performed with the aid of the bedside nurse. Attestations Medical Necessity Statement*: eval for hyponatremia Coding Level of Care Code Acute Plant Protection Supervisor for [facility]
[2020-04-09 11:40] LABS: Add Urine Microscopic? NO
[2020-04-09 11:44] LABS: Bilirubin Urine Neg (Negative); Blood Urine Neg (Negative); Glucose Urine UA Norm (Normal); Ketones Urine Negative (Negative); Leukocyte Esterase Urine Negative (Negative); Nitrate Urine Negative (Negative); Protein Urine Neg (Negative); Urine Appearance Clear (CLEAR); Urine Color Yellow (Yellow); Urobilinogen Urine Norm (Negative); pH Urine 7 (5-7)
--- NOTE | 2020-04-09 13:11 | PM.PN ---
Subjective Subjective: Interval history: Patient reports feeling better this morning. Reports that he continues to have cough which is dark brown/arita in color. He denies chest pain or abdominal pain. Reports being generally weak but able to walk to the bathroom. Vitals/I&O/Wt Last Vital Signs Temp 98.6 F 04/09/20 11:12 Pulse 88 04/09/20 11:12 Resp 18 04/09/20 11:12 BP 127/68 04/09/20 11:12 Pulse Ox 93 04/09/20 11:12 04/08/20 04/09/20 04/09/20 22:59 06:59 14:59 Intake Total 480 / 960 1018.75 / 1978.75 1580 / 1580 Output Total 400 / 675 600 / 1275 Balance 80 / 285 418.75 / 703.75 1580 / 1580 Weight last 48 hrs Weight 81.42 kg Weight 81.102 kg Physical Exam Const: COMMON NORMALS: no acute distress and patient oriented x3 Resp: COMMON NORMALS: normal respiratory effort OTHER: Coarse upper airway transmitted sounds throughout. Cardio: COMMON NORMALS: regular rate, regular rhythm and S2 normal heart sound present RATE: regular rate RHYTHM: regular rhythm HEART SOUNDS: S2 normal heart sound present OTHER: No lower extremity edema, skin dry. GI: COMMON NORMALS: Normal to inspection, nondistended, normoactive bowel sounds present, Soft to palpation and non-tender PALPATION: Yes Soft to palpation Neuro: COMMON NORMALS: patient oriented x3 and no focal motor deficits Data : 04/09/20 05:55 04/09/20 05:55 A&P Assessment and plan (1) Hyponatremia: Appears to be combination of hydrochlorothiazide and decreased oral intake. Rather slow improvement, sodium up to 117 overnight, was given 1 g NaCl tablets. This morning 118. Continue monitoring, will relax interval somewhat to 8 hours since he has not had drastic changes. Appreciate nephrology recommendations, adjustment of IV fluids to LR. Continue treatment of underlying pulmonary problem. Symptomatic Hyponatremia likely 2/2 to poor oral intake 2/2 to COVID infection. Appetite is poor. He agrees to take some Ensure with meals. DC HCTZ on discharge. TSH normal Random Cortisol appropriate. Status: Inactive (2) COVID-19: Showing gradual improvement. Today he feels like he is bringing up some phlegm. Discussed with him use of flutter valve. Continue attempts to wean down oxygen. Not on oxygen prior to admission. Continue remdesivir, Decadron at this time. Albuterol inhaler as needed for wheezing. Lovenox PPx Status: Acute (3) HTN (hypertension): BP at goal. Continue Amlodipine 10 mg oral daily for now Status: Acute Additional A&P Information Constipation: add bowel regimen Leg cramps: Resolved. He reports these have improved. Likely due to electrolyte imbalances, dehydration. Mg, K, Ca ok. Rhabdomyolysis improving w gentle hydration. Acute bronchitis, present on admission. Patient appears to have secondary bacterial infection in addition to COVID-19. DVT PPX: On lovenox 40 mg sc daily Code Status :Full code Disposition :Home PLAN: Continue gradual sodium correction. Continue remdesivir and dexamethasone. Request sputum Gram stain and culture. Will add ceftriaxone for treatment of acute bronchitis. Continue physical therapy. Attestations Medical Necessity Statement*: Patient with significant hyponatremia and COVID-19 infection requires close inpatient monitoring and treatment until deemed safe for discharge. Time Spent in Patient Care: 16 - 35 minutes Coding Level of Care Code Acute Ophthalmic Medical Technologist for Monique Hurley Diagnoses Hyponatremia E87.1 COVID-19 U07.1 HTN (hypertension) I10
[2020-04-09] MEDS: cefTRIAXone 1,000 MG in sodium chloride 0.9% (plus) 50 ML 100 MG IV (13:51)
--- NOTE | 2020-04-09 14:51 | PC.SOCIAL ---
Pg 2 IMM Explained to pt Pg 2 IMM, via phone. No questions voiced. Provided a copy to the pt care nurse to give to pt. Signed, dated, & timed a copy & placed in chart.
[2020-04-09 15:10] LABS: Sodium 125 mmol/L (136-145)
[2020-04-09] MEDS: bisacodyl 5 mg Tablet 10 MG PO (20:53)
[2020-04-09 22:57] LABS: Sodium 126 mmol/L (136-145)
[2020-04-10] VITALS (11 sets, daily range): BP systolic 132–152; BP diastolic 58–73; PULSE 68–88; RESP 17–21; TEMP 36.9–37.2; O2SAT 90–95
[2020-04-10] MEDS: enoxaparin 40 mg/0.4 mL Syringe SUBCUT (02:53)
[2020-04-10] MEDS: polyethylene glycol 3350 Pkt 17 gm PO (08:56)
[2020-04-10] MEDS: amlodipine 10 mg Tablet PO (08:57)
[2020-04-10] MEDS: gabapentin 100 mg Capsule PO ×3 (08:57→21:36)
[2020-04-10] MEDS: pantoprazole DR 40 mg Tablet PO (08:57)
[2020-04-10] MEDS: dexamethasone 4 mg Tablet 6 MG PO (08:57)
--- NOTE | 2020-04-10 09:36 | P.PN_ITS ---
Subjective Subjective: Interval history: Patient reports feeling better this morning but feels weak. Denies being short of breath. Denies chest pain or abdominal pain but reports that he still did not have a bowel movement despite several MiraLAX doses. He is breathing on room air and saturating in the low 90s this morning during my evaluation. Awaiting sodium level this morning. Patient's oral intake appears to be improving. Vitals/I&O/Wt Last Vital Signs Temp 98.8 F 04/10/20 08:00 Pulse 74 04/10/20 08:15 Resp 18 04/10/20 08:15 BP 132/67 04/10/20 08:00 Pulse Ox 93 04/10/20 08:15 04/09/20 04/10/20 04/10/20 22:59 06:59 14:59 Intake Total 595.417 / 3428.750 1168.75 / 1168.75 Output Total 650 / 650 500 / 1150 Balance -54.583 / 2778.750 -500 / 2278.750 1168.75 / 1168.75 Weight last 48 hrs Weight 80.195 kg Weight 81.42 kg Physical Exam Const: COMMON NORMALS: no acute distress and patient oriented x3 Resp: COMMON NORMALS: normal respiratory effort OTHER: Much improved air movement and much clear. Cardio: COMMON NORMALS: regular rate, regular rhythm and S2 normal heart sound present RATE: regular rate RHYTHM: regular rhythm HEART SOUNDS: S2 normal heart sound present OTHER: No lower extremity edema, skin dry. GI: COMMON NORMALS: Normal to inspection, nondistended, normoactive bowel sounds present, Soft to palpation and non-tender PALPATION: Yes Soft to palpation Neuro: COMMON NORMALS: patient oriented x3 and no focal motor deficits Data : 04/09/20 05:55 04/09/20 22:15 Micro: Microbiology 04/09/20 14:10 Gram Stain - Final Sputum - Expectorated Sputum A&P Assessment and plan (1) Hyponatremia: Appears to be combination of hydrochlorothiazide and decreased oral intake. Rather slow improvement, sodium up to 117 overnight, was given 1 g NaCl tablets. This morning 118. Continue monitoring, will relax interval somewhat to 8 hours since he has not had drastic changes. Appreciate nephrology recommendations, adjustment of IV fluids to LR. Continue treatment of underlying pulmonary problem. Symptomatic Hyponatremia likely 2/2 to poor oral intake 2/2 to COVID infection. Appetite is poor. He agrees to take some Ensure with meals. DC HCTZ on discharge. TSH normal Random Cortisol appropriate. Status: Inactive (2) COVID-19: Showing gradual improvement. Today he feels like he is bringing up some phlegm. Discussed with him use of flutter valve. Continue attempts to wean down oxygen. Not on oxygen prior to admission. Continue remdesivir, Decadron at this time. Albuterol inhaler as needed for wheezing. Lovenox PPx Status: Acute (3) HTN (hypertension): BP at goal. Continue Amlodipine 10 mg oral daily for now Status: Acute Additional A&P Information Constipation: add bowel regimen Leg cramps: Resolved. He reports these have improved. Likely due to electrolyte imbalances, dehydration. Mg, K, Ca ok. Rhabdomyolysis improving w gentle hydration. Acute bronchitis, present on admission. Patient appears to have secondary bacterial infection in addition to COVID-19. DVT PPX: On lovenox 40 mg sc daily Code Status :Full code Disposition :Home PLAN: Continue ceftriaxone. Awaiting sodium level and culture results. We will request physical therapy and get patient out of bed. If continues to improve we will likely be able to dismiss patient home tomorrow. He does not feel strong enough to be discharged today. He does not want to consider nursing facility. Attestations 2 Medical Necessity Statement*: Patient with COVID-19 infection and hyponatremia requires close inpatient monitoring and treatment until deemed safe for discharg e. Coding Level of Care Code Acute Content Producer for [facility] Diagnoses Hyponatremia E87.1 COVID-19 U07.1 HTN (hypertension) I10
[2020-04-10 09:37] LABS: Sodium 126 mmol/L (136-145)
--- NOTE | 2020-04-10 09:40 | P.PN_ITS ---
Subjective Subjective: Interval history: leg cramps have resolved; now reports mild body aches and fatigue Medications: Reviewed: Yes Vitals/I&O/Wt Last Vital Signs Temp 98.8 F 04/10/20 08:00 Pulse 74 04/10/20 08:15 Resp 18 04/10/20 08:15 BP 132/67 04/10/20 08:00 Pulse Ox 93 04/10/20 08:15 04/09/20 04/10/20 04/10/20 22:59 06:59 14:59 Intake Total 595.417 / 3428.750 1168.75 / 1168.75 Output Total 650 / 650 500 / 1150 Balance -54.583 / 2778.750 -500 / 2278.750 1168.75 / 1168.75 Weight last 48 hrs Weight 80.195 kg Weight 81.42 kg Physical Exam Const: COMMON NORMALS: no acute distress GENERAL APPEARANCE: cooperative Data : 04/09/20 05:55 04/10/20 08:50 Other Labs: CK 54, albumin 3.1 urinalysis normal Micro: Microbiology 04/09/20 14:10 Gram Stain - Final Sputum - Expectorated Sputum A&P Additional A&P Information Impression: 1. Hyponatremia, euvolemic, improved 2. Mild rhabdomyolysis, improving 3. COVID, bronchitis 4. Hypertension, well-controlled Recommendation: BMP, phos today. Do not resume Hctz. begin to reduce IVF if taking orally well. Attestations Medical Necessity Statement*: per primary service Time Spent in Patient Care: 16 - 35 minutes Coding Level of Care Code Acute Finger Cobbler for Monique Hurley
[2020-04-10 11:50] LABS: Glucose Point of Care 174 mg/dL (70-110)
[2020-04-10] MEDS: cefTRIAXone 1,000 MG in sodium chloride 0.9% (plus) 50 ML 100 MG IV (12:30)
[2020-04-10 13:00] LABS: Anion Gap 10.6 (5-19); Blood Urea Nitrogen 16 mg/dL (8-23); Calcium 8.1 mg/dL (8.5-10.5); Carbon Dioxide 27 mmol/L (22-29); Chloride 92 mmol/L (98-107); Glucose 197 mg/dL (65-115); Osmolality Calculated 269 mOsm/kg (285-295); Phosphorus 1.9 mg/dL (2.5-4.5); Potassium 3.6 mmol/L (3.5-5.1); Sodium 126 mmol/L (136-145)
[2020-04-10] MEDS: phosphorus 250 mg Tablet PO (17:36)
[2020-04-11] VITALS (8 sets, daily range): BP systolic 134–161; BP diastolic 66–78; PULSE 67–93; RESP 17–22; TEMP 36.4–37.1; O2SAT 92–95
[2020-04-11] MEDS: enoxaparin 40 mg/0.4 mL Syringe SUBCUT (01:07)
[2020-04-11 05:55] LABS: Anion Gap 13.8 (5-19); Blood Urea Nitrogen 14 mg/dL (8-23); Calcium 8.3 mg/dL (8.5-10.5); Carbon Dioxide 23 mmol/L (22-29); Chloride 94 mmol/L (98-107); Glucose 137 mg/dL (65-115); Osmolality Calculated 267 mOsm/kg (285-295); Potassium 3.8 mmol/L (3.5-5.1); Sodium 127 mmol/L (136-145)
[2020-04-11] MEDS: dexamethasone 4 mg Tablet 6 MG PO (08:23)
[2020-04-11] MEDS: polyethylene glycol 3350 Pkt 17 gm PO (08:23)
[2020-04-11] MEDS: pantoprazole DR 40 mg Tablet PO (08:24)
[2020-04-11] MEDS: gabapentin 100 mg Capsule PO ×3 (08:24→20:53)
[2020-04-11] MEDS: phosphorus 250 mg Tablet PO ×2 (08:24→17:25)
[2020-04-11] MEDS: amlodipine 10 mg Tablet PO (08:24)
--- NOTE | 2020-04-11 11:40 | PM.PN ---
Subjective Subjective: Interval history: Patient denies shortness of breath or chest pain. Reports being swollen, upper and lower extremities and IV fluids were discontinued earlier today. His sodium slightly improved to 127. Reports that his appetite and oral intake gradually improving. He had no bowel movement yet. Reports that he has difficulty falling asleep at night. Medications: Reviewed: Yes Vitals/I&O/Wt Last Vital Signs Temp 98.0 F 04/11/20 08:00 Pulse 93 04/11/20 08:48 Resp 18 04/11/20 08:48 BP 145/67 04/11/20 08:00 Pulse Ox 93 04/11/20 08:48 04/10/20 04/11/20 04/11/20 22:59 06:59 14:59 Intake Total 1508.75 / 3092.50 280 / 3372.50 300 / 300 Output Total 1200 / 1900 400 / 2300 200 / 200 Balance 308.75 / 1192.50 -120 / 1072.50 100 / 100 Weight last 48 hrs Weight 80.377 kg Weight 80.195 kg Physical Exam Const: COMMON NORMALS: no acute distress and patient oriented x3 Resp: COMMON NORMALS: normal respiratory effort OTHER: Much improved air movement and much clear. Cardio: COMMON NORMALS: regular rate, regular rhythm and S2 normal heart sound present RATE: regular rate RHYTHM: regular rhythm HEART SOUNDS: S2 normal heart sound present OTHER: Trace lower and upper extremity edema. GI: COMMON NORMALS: Normal to inspection, nondistended, normoactive bowel sounds present, Soft to palpation and non-tender PALPATION: Yes Soft to palpation Neuro: COMMON NORMALS: patient oriented x3 and no focal motor deficits Data : 04/09/20 05:55 04/11/20 04:30 Micro: Microbiology 04/09/20 14:10 Gram Stain - Final Sputum - Expectorated Sputum Sputum Culture - Preliminary Staphylococcus aureus A&P Assessment and plan (1) Hyponatremia: Appears to be combination of hydrochlorothiazide and decreased oral intake. Rather slow improvement, sodium up to 117 overnight, was given 1 g NaCl tablets. This morning 118. Continue monitoring, will relax interval somewhat to 8 hours since he has not had drastic changes. Appreciate nephrology recommendations, adjustment of IV fluids to LR. Continue treatment of underlying pulmonary problem. Symptomatic Hyponatremia likely 2/2 to poor oral intake 2/2 to COVID infection. Appetite is poor. He agrees to take some Ensure with meals. DC HCTZ on discharge. TSH normal Random Cortisol appropriate. Status: Inactive (2) COVID-19: Showing gradual improvement. Today he feels like he is bringing up some phlegm. Discussed with him use of flutter valve. Continue attempts to wean down oxygen. Not on oxygen prior to admission. Continue remdesivir, Decadron at this time. Albuterol inhaler as needed for wheezing. Lovenox PPx Status: Acute (3) HTN (hypertension): BP at goal. Continue Amlodipine 10 mg oral daily for now Status: Acute Additional A&P Information Constipation: add bowel regimen Leg cramps: Resolved. He reports these have improved. Likely due to electrolyte imbalances, dehydration. Mg, K, Ca ok. Rhabdomyolysis improving w gentle hydration. Acute bronchitis, present on admission. Patient appears to have secondary bacterial infection in addition to COVID-19. Benign prostatic hyperplasia. DVT PPX: On lovenox 40 mg sc daily Code Status :Full code Disposition :Home PLAN: Continue ceftriaxone. Will give patient 1 dose of Lasix Since hydrochlorothiazide/triamterene will be discontinued I will add Flomax as patient also reports at times difficulty to initiate urination and slow stream. We will try trazodone at bedtime MiraLAX for bowel movement. Continue ceftriaxone. Repeat labs in a.m. Attestations Medical Necessity Statement*: Patient with hyponatremia requires close inpatient monitoring and treatment until deemed safe for discharge. Coding Level of Care Code Acute Gum Machine Operator for Monique Hurley Diagnoses Hyponatremia E87.1 COVID-19 U07.1 HTN (hypertension) I10
[2020-04-11] MEDS: FUROsemide 10 mg/mL SDV 2mL 20 MG IVP (12:44)
[2020-04-11] MEDS: trazodone 50 mg Tablet PO (12:44)
[2020-04-11] MEDS: tamsulosin 0.4 mg Capsule PO (12:44)
[2020-04-11] MEDS: potassium chloride ER 20 mEq Tablet 40 MEQ PO (12:44)
[2020-04-11] MEDS: cefTRIAXone 1,000 MG in sodium chloride 0.9% (plus) 50 ML 100 MG IV (13:26)
--- NOTE | 2020-04-11 13:32 | PM.PN ---
Subjective Subjective: Interval history: Continues to feel better. Reports some edema today Medications: Reviewed: Yes Vitals/I&O/Wt Last Vital Signs Temp 98.3 F 04/11/20 12:00 Pulse 79 04/11/20 12:00 Resp 20 H 04/11/20 12:00 BP 148/66 04/11/20 12:00 Pulse Ox 95 04/11/20 12:00 04/10/20 04/11/20 04/11/20 22:59 06:59 14:59 Intake Total 1508.75 / 3092.50 280 / 3372.50 1558.75 / 1558.75 Output Total 1200 / 1900 400 / 2300 600 / 600 Balance 308.75 / 1192.50 -120 / 1072.50 958.75 / 958.75 Weight last 48 hrs Weight 80.377 kg Weight 80.195 kg Data : 04/09/20 05:55 04/11/20 04:30 Micro: Microbiology 04/09/20 14:10 Gram Stain - Final Sputum - Expectorated Sputum Sputum Culture - Preliminary Staphylococcus aureus A&P Additional A&P Information Impression: 1. Hyponatremia, euvolemic, stable. Resume NaCl 1 gram BID. 2. Mild rhabdomyolysis, improving 3. COVID, bronchitis 4. Hypertension, well-controlled 5. Hypophosphatemia - oral replacement started Recommendation: Agree with stopping IVF. Recheck phos tomorrow. Attestations Medical Necessity Statement*: per primary service Time Spent in Patient Care: 16 - 35 minutes Coding Level of Care Code Acute Senior Analyst for Monique Hurley
[2020-04-11] MEDS: sodium chloride 1 gm Tablet PO (17:25)
[2020-04-12] VITALS: BP 150/73; PULSE 88; RESP 17; TEMP 36.4; O2SAT 94
[2020-04-12] MEDS: enoxaparin 40 mg/0.4 mL Syringe SUBCUT (01:46)
[2020-04-12 04:00] VITALS: BP 153/75; PULSE 91; RESP 18; TEMP 36.6; O2SAT 93
[2020-04-12 05:02] LABS: Basophils % 0.3 %; Hematocrit 38.6 % (42.0-52.0); Hemoglobin 13.4 g/dL (11.7-16.6); Lymphocytes # 1.3 10^3/uL (0.8-4.8); Lymphocytes % 11.2 %; Mean Corpuscular HGB Conc 34.7 g/dL (30.0-36.0); Mean Corpuscular Hemoglobin 30.6 pg (28.0-34.0); Mean Corpuscular Volume 88.1 fL (80-94); Mean Platelet Volume 9.5 fL (7.4-10.4); Monocytes # 1.1 10^3/uL (0.2-0.9); Monocytes % 9.8 %; Neutrophils # 8.35 10^3/uL (1.8-7.7); Neutrophils % 74.2 %; Nucleated Red Blood Cells % 0 %; Platelet Count 376 10^3/cmm (130-400); Red Blood Count 4.38 10^6/uL (4.1-5.3); Red Cell Distribution Width 12.6 % (12.1-15.1); White Blood Count 11.3 10^3/uL (4.0-10.0)
[2020-04-12 05:27] LABS: Alanine Aminotransferase 71 U/L (0-41); Albumin Level 3.3 g/dL (3.5-5.2); Alkaline Phosphatase 89 IU/L (40-130); Blood Urea Nitrogen 20 mg/dL (8-23); Calcium 8.6 mg/dL (8.5-10.5); Carbon Dioxide 27 mmol/L (22-29); Chloride 90 mmol/L (98-107); Globulin 2.5 g/dL (1.3-4.6); Glucose 170 mg/dL (65-115); Magnesium 1.6 mg/dL (1.7-2.3); Osmolality Calculated 273 mOsm/kg (285-295); Sodium 128 mmol/L (136-145); Total Bilirubin 0.5 mg/dL (0.15-1.2); Total Protein 5.8 g/dL (6.6-8.7)
[2020-04-12 05:44] LABS: Aspartate Amino Transferase 44 U/L (0-40)
[2020-04-12 08:00] VITALS: BP 161/75; PULSE 85; PULSE 94; RESP 16; TEMP 37.2; O2SAT 96
[2020-04-12] MEDS: sodium chloride 1 gm Tablet PO (08:41)
[2020-04-12] MEDS: polyethylene glycol 3350 Pkt 17 gm PO (08:42)
[2020-04-12] MEDS: phosphorus 250 mg Tablet PO (08:42)
[2020-04-12] MEDS: gabapentin 100 mg Capsule PO (08:42)
[2020-04-12] MEDS: tamsulosin 0.4 mg Capsule PO (08:42)
[2020-04-12] MEDS: dexamethasone 4 mg Tablet 6 MG PO (08:42)
[2020-04-12] MEDS: pantoprazole DR 40 mg Tablet PO (08:42)
[2020-04-12] MEDS: amlodipine 10 mg Tablet PO (08:42)
[2020-04-12 09:08] VITALS: PULSE 101; RESP 18; O2SAT 93
--- NOTE | 2020-04-12 09:26 | P.PN_ITS ---
Subjective Subjective: Interval history: feels well, anxious for discharge Medications: Reviewed: Yes Vitals/I&O/Wt Last Vital Signs Temp 97.8 F 04/12/20 04:00 Pulse 101 H 04/12/20 09:08 Resp 18 04/12/20 09:08 BP 153/75 04/12/20 04:00 Pulse Ox 93 04/12/20 09:08 04/11/20 04/12/20 04/12/20 22:59 06:59 14:59 Intake Total 760 / 2318.75 Output Total 1300 / 2500 600 / 3100 Balance -540 / -181.25 -600 / -781.25 Weight last 48 hrs Weight 81.556 kg Weight 80.377 kg Data : 04/12/20 04:50 04/12/20 04:50 Other Labs: Mg 1.6, phos 3 Micro: Microbiology 04/09/20 14:10 Gram Stain - Final Sputum - Expectorated Sputum Sputum Culture - Final Methicillin Resis Staph Aureus A&P Additional A&P Information Impression: 1. Hyponatremia, euvolemic, improving. Continue NaCl 1 gram BID. 2. COVID, bronchitis 3. Hypertension 4. Hypophosphatemia - resolved - can discontinue supplement 5. Hypomagnesemia - replace Recommendation: Okay for discharge from renal standpoint. Labs in one week as outpatient. Attestations Medical Necessity Statement*: per primary service Time Spent in Patient Care: less than 15 minutes Coding Level of Care Code Acute Customer Care Representative for Monique Hurley
[2020-04-12] MEDS: magnesium sulfate premix 2 GM/50 ML PIGGYBACK IV (11:20)
--- NOTE | 2020-04-12 11:57 | P.DS_ITS ---
Discharge Providers Date of Admission: 04/06/20 00:45 Date of Discharge: April 12, 2020 Attending Provider at Admission: Alecia Dodd MD Attending Provider at Discharge: Howard Vieira MD Diagnoses at Discharge Discharge Diagnosis (1) Hyponatremia: Status: Inactive (2) COVID-19: Status: Acute (3) HTN (hypertension): Status: Acute (4) Acute bronchitis: Status: Acute (5) Benign prostatic hyperplasia: Status: Acute (6) Hyponatremia: Status: Acute Reason for Visit Reason for Visit: covid+/hyponutremia Hospital Course Hospital Course Patient presented with multiple complaints along with disabling cramps, abdominal pain nausea, loss of appetite and taste resulting in decreased oral intake. Patient tested positive for COVID-19 and was diagnosed with acute bronchitis. His severe hyponatremia felt to be multifactorial with decreased oral intake and hydrochlorothiazide playing a role. Patient was treated with IV fluids and salt tabs. His sodium is gradually improving and this morning patient reports feeling much better and wants to go home. Reports that his oral intake and appetite is coming back. He reported symptoms of BPH and Flomax was initiated. He was started on ceftriaxone for signs and symptoms of acute bronchitis and I will continue patient on Omnicef for 5 more days along with dexamethasone. Protonix will be given for GI protection. We will repeat labs in 1 week and I requested results to be sent to primary care physician. This morning patient denies shortness of breath or chest pain. His cough much improved. His magnesium is low and 2 g were ordered. Physical Exam Const: COMMON NORMALS: no acute distress and patient oriented x3 Resp: COMMON NORMALS: normal respiratory effort and clear to auscultation bilaterally AUSCULTATION: clear to auscultation bilaterally Cardio: COMMON NORMALS: regular rate, regular rhythm and S2 normal heart sound present RATE: regular rate RHYTHM: regular rhythm HEART SOUNDS: S2 normal heart sound present OTHER: No lower extremity edema GI: COMMON NORMALS: Normal to inspection, nondistended, normoactive bowel sounds present, Soft to palpation and non-tender PALPATION: Yes Soft to palpation Neuro: COMMON NORMALS: patient oriented x3 and no focal motor deficits Discharge Data Data Completed and Pending: Completed Studies During Hospitalization Category Date Time Status XR chest 1V barbara ble [id number] Routine Exams 04/06/20 19:44 Completed Pending at discharge Category Date Time Status Complete Blood Co unt w/Auto AM LABS Lab 04/13/20 04:00 Ordered Complete Blood Co unt w/Auto AM LABS Lab 04/14/20 04:00 Ordered Comprehensive Met abolic Panel AM LA BS Lab 04/13/20 04:00 Ordered Comprehensive Met abolic Panel AM LA BS Lab 04/14/20 04:00 Ordered Magnesium AM LABS Lab 04/13/20 04:00 Ordered Magnesium AM LABS Lab 04/14/20 04:00 Ordered Labs from last 24 hours 04/12/20 04/12/20 04:50 04:50 WBC 11.3 H RBC 4.38 Hgb 13.4 Hct 38.6 L MCV 88.1 MCH 30.6 MCHC 34.7 RDW 12.6 Plt Count 376 MPV 9.5 Neut % (Auto) 74.2 Lymph % (Auto) 11.2 [place] % (Auto) 9.8 Eos % (Auto) 0.0 Baso % (Auto) 0.3 Neut # (Auto) 8.35 H Lymph # (Auto) 1.3 [place] # (Auto) 1.1 H Eos # (Auto) 0.0 Baso # (Auto) 0.0 Nucleated RBC % (a uto) 0 Nucleated RBCs # 0.0 Sodium 128 L Potassium 4.0 Chloride 90 L Carbon Dioxide 27 Anion Gap 15.0 BUN 20 Creatinine 0.9 GFR Calculation Not Reportable Glucose 170 H Calculated Osmolal ity 273 L Calcium 8.6 Phosphorus 3.0 Magnesium 1.6 L Total Bilirubin 0.5 AST 44 H ALT 71 H Alkaline Phosphata se 89 Total Protein 5.8 L Albumin 3.3 L Globulin 2.5 Vitals: Last Vital Signs Temp 98.9 F 04/12/20 08:00 Pulse 101 H 04/12/20 09:08 Resp 18 04/12/20 09:08 BP 161/75 04/12/20 08:00 Pulse Ox 93 04/12/20 09:08 Discharge Plan Discharge Patient Disposition: Home Condition: Stable Prescriptions: New bisacodyl 5 mg Tablet,Delayed Release (Dr/Ec) 10 mg PO DAILY PRN (Reason: Constipation) Qty: 30 RF: 0 polyethylene glycol 3350 17 gram Powder In Packet 17 g PO DAILY Qty: 30 RF: 0 tamsulosin 0.4 mg Capsule 0.4 mg PO DAILY Qty: 30 RF: 0 sodium chloride 1 gram Tablet 1 g PO BID Qty: 28 RF: 0 dexamethasone 4 mg Tablet 6 mg PO DAILY Qty: 5 RF: 0 pantoprazole 40 mg Tablet,Delayed Release (Dr/Ec) 40 mg PO DAILY Qty: 14 RF: 0 cefdinir 300 mg capsule 300 mg PO BID 5 Days Qty: 10 RF: 0 Continued amlodipine 10 mg tablet 10 mg PO DAILY RF: 0 Discontinued triamterene-hydrochlorothiazid 75-50 mg tablet 1 tab PO DAILY RF: 0 Discharge Orders: Discharge Order (Routine); Ordered 04/12/20 Ordered By: Howard Vieira Other Ambulatory Orders: Basic Metabolic Panel (Routine) Timeframe: 1 Week Facility: [facility] - Location: Lab - Main Lab Ordered By: Howard Vieira Discharge Diet: Usual diet Discharge Activity: Increase activity as tolerated Activity Restrictions/Additional Instructions: Please call your doctor or present to emergency department if your condition worsens or you develop diarrhea, lightheadedness, fatigue or see blood in your stool or black stool. Please continue taking MiraLAX daily but stop if you develop diarrhea. Please keep blood pressure and heart rate log 3 times daily to present to your primary care physician next visit for medication adjustment. Discharge Attestations Time Spent in Discharge Care*: greater than 30 min Quality Metrics Clinical Quality Measures During this hospital stay, did patient experience: None Coding Level of Care Code Acute Psychiatric Secretary for Monique Hurley Diagnoses Hyponatremia E87.1 COVID-19 U07.1 HTN (hypertension) I10 Acute bronchitis J20.9 Benign prostatic hyperplasia N40.0 Hyponatremia E87.1
[2020-04-12 12:00] VITALS: BP 152/66; PULSE 93; RESP 17; TEMP 36.9; O2SAT 93
[2020-04-12 14:24] VITALS: BP 152/66; PULSE 93; RESP 17; TEMP 36.9; O2SAT 93
--- NOTE | 2020-04-12 14:25 | PC.NURSE ---
Reviewed patient's discharge with patient at this time. Patient verbalized understanding of discharge instructions. Patient medications will be called into [facility] in [facility] at patient's request. Patient is A&Ox3. Respirations even and no-labored on room air. Patient verbalized understanding to quarantine for another 7 days. Patient ambulated to the car without difficulty.
--- NOTE | 2020-04-16 16:15 | PC.SOCIAL ---
Patient indicates he is doing a little better. Main concern is weakness. He is slowly improving. He is not sob. He is ambulating. Still no taste or smell. [facility] [place] [facility] with labs. We have reviewed his medications and he has no questions. We discussed ongoing precautions. Important to eat and drink but not to take in excessive fluids since has a risk of fluid overload. He verbalized understanding. We reviewed taking precautions in public and importance of follow up with PCP. He plans to attend appt. He is not interested in plasma donation at this time.
== END 2020-04-12 14:20 | disposition home or self-care (01) | DRG 178 ==
PROVIDERS: Internal Medicine; Internal Medicine Nephrology; Admitting Provider Internal Medicine; Visit Provider Internal Medicine
DX: U07.1 COVID-19 (principal); E87.1 Hypo-osmolality and hyponatremia; M62.82 Rhabdomyolysis; J20.9 Acute bronchitis, unspecified; I10 Essential (primary) hypertension; N40.0 Benign prostatic hyperplasia without lower urinary tract symptoms; K59.00 Constipation, unspecified; E86.0 Dehydration; E83.39 Other disorders of phosphorus metabolism; E83.42 Hypomagnesemia
CPT/HCPCS: 12345; 36415; 36416; 71045; 80048; 80053; 81003; 82533; 82550; 82728; 82962; 83735; 83880; 83930; 83935; 84100; 84295; 84443; 85025; 85378; 85651; 86140; 87070; 87077; 87186; 87205; 96372; 96375; 97110; 97161; C9113; J0696; J1650; J1940; J3475; J7030; J8540; Q3014